=== PATIENT | female | born 1940 ===

== ENCOUNTER 2018-11-29 11:04 | Emergency (ER) | payer OTHER, BC ==
[~2018-11-29] VITALS: Ht 170.2 cm; Wt 68.0 kg
== END 2018-11-29 14:25 | disposition home or self-care (01) ==
LOC: ER 11:04
DX: S50.811A Abrasion of right forearm, initial encounter (principal); W23.0XXA Caught, crushed, jammed, or pinched between moving objects, initial encounter; Y93.89 Activity, other specified; Y92.89 Other specified places as the place of occurrence of the external cause; Y99.8 Other external cause status